=== PATIENT | male | born 1970 | race Caucasian/White ===

== ENCOUNTER 2024-08-11 18:01 | Emergency (ER) | payer MEDICAID ==
[~2024-08-11] VITALS: Ht 180.3 cm; Wt 103.2 kg
[2024-08-11 18:08] VITALS: TEMP 98.5
--- NOTE | 2024-08-11 18:14 | Physician Documentation ---
History of Present Illness ~ Stated Complaint: PASSED OUT Time Seen by MD: 21:07 HPI 53-year-old male with history of these near syncopal episodes last episode in March 2024 is currently being formally evaluated by primary care. Patient has a referral but has not seen Cardiology due to days near syncopal episodes. Patient had a near syncopal episode today he does remember the end higher episode where he took himself to the ground and rolled on the ground. No loss of consciousness no head strike. The patient states that he feels like he can not wait for the already scheduled head CT on Thursday. Patient has been having some near syncopal episodes over the past 10 years. All very distantly apart. He did have a near syncopal episode in March after he was crossing his legs examining his foot which prompted him to get established with a primary care he has been falling for this. Today he was sitting at his computer and that has having some gut pain for which she has scribe's to eating prunes to alleviate some constipation he has been dealing with. He began to feel unusual therefore he stood up and became so weak and lightheaded that he almost passed out dropping to the ground with no head strike. Currently he feels like himself. He denies any chest pain or palpitations. He has primary care has echoes as well as cardiologic referrals and neurologic referrals and CT scan of his head for Thursday. He denies one-sided leg pain or family history of sudden cardiac . He denies history of blood pressure cholesterol diabetes and does not smoke. No first-degree relative of heart disease Medication Reconciliation Allergies: Coded Allergies: No Known Allergies (Unverified , 08/11/24) Review of Systems ROS All review of systems negative except as per HPI Physical Exam Physical Exam General: Patient is awake, alert, oriented x4 in no acute distress and well appearing.~ Head: Normocephalic and atraumatic. Eyes: Conjunctival normal. EOMI. PERRL. ENT: Mucous membranes moist. Neck: Supple, trachea is midline. Chest: Clear to auscultation bilaterally without rales, rhonchi, or wheezes. There is no accessory muscle use or retractions. Cardiac: RRR without murmurs, gallops, or rubs. Abd: Soft, nondistended, nontender, with normoactive bowel sounds. No guarding, rebound, or rigidity. Extremities: Normal strength. Normal range of motion. No deformities or edema. No calf tenderness to palpation Back: No midline spinal or CVA tenderness. Skin: Warm and dry with no significant rash appreciated. Neuro: Cranial nerves II-XII grossly intact. No focal neuro deficits. Patient ambulating without difficulty. General Appearance: alert, WD/WN, no apparent distress Progress Results/Orders Results/Orders Vital Signs 08/11/24 08/11/24 08/11/24 18:08 20:47 20:51 Temp 98.5 Pulse 85 67 Resp 16 16 16 B/P (MAP) 128/88 150/81 (104) Pulse Ox 98 96 O2 Flow Rate 0 Laboratory Tests Test 08/11/24 18:23 08/11/24 20:27 White Blood Count 8.6 Red Blood Count 5.00 Hemoglobin 14.8 Hematocrit 43.9 Mean Corpuscular Volume 87.9 Mean Corpuscular Hemoglobin 29.6 Mean Corpuscular Hemoglobin Concent 33.6 Red Cell Distribution Width 14.4 Platelet Count 228 Mean Platelet Volume 7.9 Neutrophils (%) (Auto) 70.0 Lymphocytes (%) (Auto) 21.9 Monocytes (%) (Auto) 6.3 Eosinophils (%) (Auto) 1.4 Basophils (%) (Auto) 0.4 Neutrophils # (Auto) 6.1 Lymphocytes # (Auto) 1.9 Monocytes # (Auto) 0.5 Eosinophils # (Auto) 0.1 Basophils # (Auto) 0.0 CBC Comment Sodium Level 141 Potassium Level 4.3 Chloride Level 104 Carbon Dioxide Level 26.2 Anion Gap 11 Blood Urea Nitrogen 17 Creatinine 1.28 H Estimated GFR/1.73 m2 59 BUN/Creatinine Ratio 13.3 Glucose Level 102 Calcium Level 8.6 Troponin I High Sensitivity 4 < 4 L Pro-B-Type Natriuretic Peptide < 30 Albumin 4.0 Chemistry Comments Troponin I High Sens Percent Delta Troponin I Hi Sens Absolute Change EKG/XRAY/CT/US/VASC/MRI EKG : Additional Comment EKG interpreted by myself shows time of 18 50, rate 79, sinus rhythm, normal axis, no ST changes Chest X-Ray : Additional Comments Exam: CHEST,SINGLE VIEW EXAM: DI CHEST,SINGLE VIEW TECHNIQUE: Single frontal chest radiograph CLINICAL HISTORY: CP COMPARISON: None Findings/Impression: Frontal chest radiograph demonstrates no acute osseous or superficial soft tissue abnormalities. The trachea is midline. The cardiac silhouette and mediastinum are within normal limits. No pneumothorax, pleural effusions, or consolidations. Medical Decision Making Findings Patient presents to the emergency room with near syncopal episode after feeling got pain and standing up. Differentials include but are not limited to vasovagal, cardiac arrhythmia, stroke, dehydration, electrolyte disturbances therefore emergent labs and imaging indicated. Chest x-ray is reassuring as is his EKG and labs. No calf tenderness and he had not feel he requires investigation of possible pulmonary embolism. Given his history of having gut pain along with standing causing the symptoms I believe he is suffering from vasovagal episode. He has excellent follow up. Offered admission for further workup however he is declining prefer to follow up with his doctor. ER precautions discussed Departure Disposition: HOME / SELF CARE / HOMELESS Impression: Primary Impression: Vasovagal near syncope Condition: Stable Discharge Instructions: Near-Syncope Additional Instructions: Continue to follow up with your doctor. Make sure you stay well hydrated. Consider [id number] constipation medications Referrals: NO PRIMARY CARE PROVIDER (PCP) Education Educated: Patient Educated regarding: need for follow up Signature Scribe Signature: No scribe Attestation: The note accurately reflects work and decisions made by me.Akash Macias MD 08/11/24 21:35 MIGUEL SOARES NP Aug 11, 2024 18:14 AKASH MACIAS MD Aug 11, 2024 21:31
[2024-08-11 18:35] LABS: BASOPHILS % (AUTO) 0.4 % (0-1); EOSINOPHILS # (AUTO) 0.1 X10'3 (0-0.9); EOSINOPHILS % (AUTO) 1.4 % (0-6); HEMATOCRIT 43.9 % (42.0-52.0); HEMOGLOBIN 14.8 g/dl (14.0-17.9); LYMPHOCYTES # (AUTO) 1.9 X10'3 (1.1-4.8); LYMPHOCYTES % (AUTO) 21.9 % (21-51); MEAN CORPUSCULAR HEMOGLOBIN 29.6 PG (27.0-31.0); MEAN CORPUSCULAR HGB CONC 33.6 g/dL (33.0-36.5); MEAN CORPUSCULAR VOLUME 87.9 FL (78-98); MEAN PLATELET VOLUME 7.9 FL (7.4-10.4); MONOCYTES # (AUTO) 0.5 X10'3 (0-0.9); MONOCYTES % (AUTO) 6.3 % (2-12); NEUTROPHILS # (AUTO) 6.1 X10'3 (1.8-7.7); PLATELET COUNT 228 X10'3 (140-440); RED CELL DISTRIBUTION WIDTH 14.4 % (11.5-14.5); WHITE BLOOD COUNT 8.6 X10'3 (4.5-11.0)
--- NOTE | 2024-08-11 18:46 | RADIOLOGY REPORT ---
EXAM: DI CHEST,SINGLE VIEW TECHNIQUE: Single frontal chest radiograph CLINICAL HISTORY: CP COMPARISON: None Findings/Impression: Frontal chest radiograph demonstrates no acute osseous or superficial soft tissue abnormalities. The trachea is midline. The cardiac silhouette and mediastinum are within normal limits. No pneumothorax, pleural effusions, or consolidations.
--- NOTE | 2024-08-11 18:52 | ELECTROCARDIOGRAPH REPORT ---
[facility] Test Date: 2024-08-11 Test Time: 18:50:41 Pat Name: FABIO BAGLEY Department: [facility]-ER Patient ID: [facility]-[id number] Room: Gender: M Registered Safety Engineer: : [id number] Requested By: SHARONA CHINO Order Number: [id number] Reading MD: Dr. Bienvenido Tena Measurements Intervals [place] Rate: 79 P: 51 MO: 131 QRS: 69 QRSD: 93 T: -11 QT: 360 QTc: 413 Interpretive Statements Sinus rhythm Probable inferior infarct, age indeterminate Baseline wander in lead(s) I Electronically Signed On 08-12-2024 18:22:[address] Bienvenido Tena Please click the below link to view image of tracing.
[2024-08-11 19:03] LABS: ANION GAP 11 (8-16); BLOOD UREA NITROGEN 17 MG/DL (7-18); BUN/CREATININE RATIO 13.3 (10.0-20.0); CALCIUM 8.6 MG/DL (8.5-10.1); CHLORIDE 104 MMOL/L (99-107); CREATININE 1.28 MG/DL (0.60-1.10); POTASSIUM 4.3 MMOL/L (3.5-5.1); PRO BRAIN NATRIURETIC PEPTIDE < 30 PG/ML (0-125); SODIUM 141 MMOL/L (135-145); TOTAL CARBON DIOXIDE 26.2 MMOL/L (24-32); eCRCL 71 ML/MIN; eGFR 59 ML/MIN
[2024-08-11 19:10] LABS: GLUCOSE 102 MG/DL (70-104)
[2024-08-11 21:53] VITALS: BP 130/85; PULSE 66; RESP 16; O2SAT 96
== END 2024-08-11 21:55 | disposition home or self-care (01) ==
LOC: ER 18:02
DX: R55 Syncope and collapse (principal); K59.00 Constipation, unspecified; R06.02 Shortness of breath
CPT/HCPCS: 36415; 71045; 80048; 83880; 84484; 85025; 93005; 99285